=== PATIENT | female | born 1990 ===

== ENCOUNTER 2021-02-12 03:09 | Inpatient (IN) | payer BC ==
[2021-02-12] MEDS ORDERED: Carboprost Tromethamine 250 MCG/1 ML Amp IM PRN (07:45)
[2021-02-12] MEDS ORDERED: Sodium Chloride 0.9% 10 ML SDV IV PRN (07:45)
[2021-02-12] MEDS ORDERED: Sodium Chloride 0.9% 2.5 ML Syringe FLUSH PRN (07:45)
[2021-02-12] MEDS ORDERED: Misoprostol 200 MCG Tab PO PRN (07:45)
[2021-02-12] MEDS ORDERED: Sodium Chloride 0.9% 10 ML Syringe FLUSH PRN (07:45)
[2021-02-12] MEDS ORDERED: Oxytocin/0.9 % Sodium Chloride 30 UNIT/500 ML BAG IV SCH ×2 (07:45)
[2021-02-12] MEDS ORDERED: Misoprostol 25 MCG (1/4 of 100 MCG) Tab VAG PRN (07:45)
[2021-02-12] MEDS ORDERED: Ondansetron 4 MG/2 ML SDV IVPUSH PRN (07:45)
[2021-02-12] MEDS ORDERED: Methylergonovine 0.2 MG/1 ML Amp IM PRN (07:45)
[2021-02-12] MEDS ORDERED: Lidocaine 1% 50 ML MDV INJECT PRN (07:45)
[2021-02-12] MEDS ORDERED: Nalbuphine 10 MG/1 ML Vial IVPUSH PRN (07:45)
[2021-02-12] MEDS ORDERED: Tranexamic Acid 1,000 MG in Sodium Chloride 0.9% 100 ML IV PRN (07:45)
[2021-02-12] MEDS ORDERED: Water For Irrigation,Sterile 1,000 ML Container IRR PRN (07:45)
[2021-02-12] MEDS ORDERED: Ampicillin 2 GM in Sodium Chloride 0.9% 100 ML IV ONE (07:45)
[2021-02-12] MEDS ORDERED: Misoprostol 25 MCG (1/4 of 100 MCG) Tab PO SCH (07:45)
[2021-02-12] MEDS ORDERED: Terbutaline 1 MG/ML SDV SUBCUT PRN (07:45)
[2021-02-12] MEDS ORDERED: hydrOXYzine Pamoate 25 MG Cap PO PRN (08:00)
--- NOTE | 2021-02-12 08:39 | PCM.LDHP ---
L&D History of Present Illness - General Date of Service: 02/12/21 Admit Problem/Dx: Patient Status Order with Admit Dx/Problem 02/12/21 07:46 Patient Status [ADT] Routine Admission Diagnosis/Problem Admission Diagnosis/Problem 02/12/21 08:35 presenting to L&D with complaints of regular uterine contractions approximately 5 minutes apart. She is 41 2/7 weeks today (LUDWIG: 02/03/21 by LMP and early ultrasound). O+, rubella immune, GBS positive. SVE per nurse report 1cm/50%/-3, medium, midposition. 02/12/21 08:40 Source of Information: Patient History Limitations: Reports: No Limitations - Related Data Allergies/Adverse Reactions: Allergies Allergy/AdvReac Type Severity Reaction Status Date / Time No Known Allergies Allergy Verified 02/12/21 04:18 Home Medications: Home Meds Pnv No.95/Ferrous Fum/Folic AC [ Caplet] 1 each PO 02/12/21 [History] Past Medical History - Past Health History Medical/Surgical History: Denies Medical/Surgical History Social & Family History - Family History Family Medical History: No Pertinent Family History - Tobacco Use Tobacco Use Status *Q: Never Tobacco User Second Hand Smoke Exposure: No - Caffeine Use Caffeine Use: Reports: None - Recreational Drug Use Recreational Drug Use: No H&P Review of Systems - Review of Systems: Review Of Systems: See Below General: Reports: No Symptoms HEENT: Reports: No Symptoms Pulmonary: Reports: No Symptoms Cardiovascular: Reports: No Symptoms Gastrointestinal: Reports: No Symptoms Genitourinary: Reports: No Symptoms Musculoskeletal: Reports: No Symptoms Skin: Reports: No Symptoms Psychiatric: Reports: No Symptoms Neurological: Reports: No Symptoms Hematologic/Lymphatic: Reports: No Symptoms Immunologic: Reports: No Symptoms L&D Exam - Exam Exam: See Below - Vital Signs Weight: 134 lb - OB Specific Movement: Active Heart Tones: Present Heart Rate (FHR) Variability: Moderate (6-25 bmp) Presentation: Vertex - Dominguez Score Dominguez Score Cervix Position: Midposition Dominguez Score Consistency: Medium Dominguez Score Effacement: 31-50% Dominguez Score Dilation: 1-2 cm Dominguez Score Infant's Station: -3 Dominguez Score Total: 4 - Exam General: Alert, Oriented, Cooperative Lungs: Clear to Auscultation, Normal Respiratory Effort Cardiovascular: Regular Rate, Regular Rhythm GI/Abdominal Exam: Soft, Non-Tender Rectal Exam: Deferred Genitourinary: Deferred Back Exam: Normal Inspection, Full Range of Motion Extremities: Normal Inspection, Normal Range of Motion, Non-Tender, Normal Capillary Refill Skin: Warm, Dry Neurological: Normal Speech, Normal Tone, Sensation Intact Psychiatric: Alert, Normal Affect, Normal Mood - Patient Data Lab Results Last 24 hrs: Laboratory Results - last 24 hr 02/12/21 Range/Units 04:30 SARS-CoV-2 RNA (HARI) NEGATIVE (NEGATIVE) - Problem List (1) Supervision of normal IUP (intrauterine ) in primigravida SNOMED Code(s): 25567396, 562588410, 495725974, 588619943 ICD Code: Z34.00 - ENCNTR FOR SUPRVSN OF NORMAL FIRST , UNSP TRIMESTER Status: Acute Priority: High Current Visit: Yes Qualifiers: Trimester: third trimester Qualified Code(s): Z34.03 - Encounter for supervision of normal first , third trimester Problem List Initiated/Reviewed/Updated: Yes Orders Last 24hrs: Active Orders 24 hr Category Date Time Status Patient Status [ADT] Routine ADT 02/12/21 07:46 Active Bedrest Bathroom Privileges [RC] ASDIRECTED Care 02/12/21 07:46 Active Communication Order [RC] ASDIRECTED Care 02/12/21 07:46 Active Communication Order [RC] ASDIRECTED Care 02/12/21 07:46 Active Communication Order [RC] ASDIRECTED Care 02/12/21 07:46 Active Heart Tones [RC] CONTINUOUS Care 02/12/21 07:46 Active Non Stress Test [RC] PER UNIT ROUTINE Care 02/12/21 07:46 Active May Shower [RC] ASDIRECTED Care 02/12/21 07:46 Active Notify Provider [RC] PRN Care 02/12/21 07:46 Active Notify Provider [RC] PRN Care 02/12/21 07:46 Active Notify Provider [RC] PRN Care 02/12/21 07:46 Active Notify Provider [RC] STAT Care 02/12/21 07:46 Active Oxygen Therapy [RC] ASDIRECTED Care 02/12/21 07:46 Active Up ad Genesis [RC] ASDIRECTED Care 02/12/21 07:46 Active Vaginal Exam [RC] PRN Care 02/12/21 07:46 Active Vaginal Exam [RC] PRN Care 02/12/21 07:46 Active Vital Signs [RC] PER UNIT ROUTINE Care 02/12/21 07:46 Active Vital Signs [RC] PER UNIT ROUTINE Care 02/12/21 07:46 Active Regular Diet [DIET] Diet 02/12/21 Breakfast Active CBC W/O DIFF,HEMOGRAM [HEME] Routine Lab 02/12/21 07:46 Ordered RPR (SYPHILIS SERO) W/ RFLX [REF] Routine Lab 02/12/21 07:46 Ordered TYPE AND SCREEN [BBK] Routine Lab 02/12/21 07:46 Ordered Ampicillin 1 gm Med 02/12/21 12:00 Active Sodium Chloride 0.9% [Normal Saline] 50 ml IV Q4H Carboprost Tromethamine [Hemabate DS] Med 02/12/21 07:45 Active 250 mcg IM ASDIRECTED PRN Lactated Ringers [Ringers, Lactated] 1,000 ml Med 02/12/21 07:45 Active IV ASDIRECTED Lidocaine 1% [Xylocaine 1%] Med 02/12/21 07:45 Active 50 ml INJECT ONETIME PRN Methylergonovine [Methergine] Med 02/12/21 07:45 Active 0.2 mg IM ASDIRECTED PRN Nalbuphine [Nubain] Med 02/12/21 07:45 Active 10 mg IVPUSH Q1H PRN Ondansetron [Zofran] Med 02/12/21 07:45 Active 4 mg IVPUSH Q6H PRN Oxytocin/0.9 % Sodium Chloride [Oxytocin 30 Unit/500 ML Med 02/12/21 07:45 Active -NS] 30 unit in 500 ml IV TITRATE Oxytocin/0.9 % Sodium Chloride [Oxytocin 30 Unit/500 ML Med 02/12/21 07:45 Active -NS] 30 unit in 500 ml IV TITRATE Sodium Chloride 0.9% [Normal Saline] Med 02/12/21 07:45 Active 10 ml IV ASDIRECTED PRN Sodium Chloride 0.9% [Saline Flush] Med 02/12/21 07:45 Active 10 ml FLUSH ASDIRECTED PRN Sodium Chloride 0.9% [Saline Flush] Med 02/12/21 07:45 Active 2.5 ml FLUSH ASDIRECTED PRN Terbutaline [Brethine] Med 02/12/21 07:45 Active 0.25 mg SUBCUT ASDIRECTED PRN Tranexamic Acid [Cyklokapron] 1,000 mg Med 02/12/21 07:45 Active Sodium Chloride 0.9% [Normal Saline] 100 ml IV ONETIME Water For Irrigation,Sterile [Sterile Water for Med 02/12/21 07:45 Active Irrigation] 1,000 ml IRR ASDIRECTED PRN hydrOXYzine pamoate [Vistaril] Med 02/12/21 08:00 Active 50 mg PO BEDTIME PRN miSOPROStoL [Cytotec] Med 02/12/21 07:45 Active 200 mcg PO ONETIME PRN miSOPROStoL [Cytotec] Med 02/12/21 07:45 Active 25 mcg PO Q4H miSOPROStoL [Cytotec] Med 02/12/21 07:45 Active 25 mcg VAG Q4H PRN Scalp Electrode [WOMSER] Per Unit Routine Oth 02/12/21 07:46 Ordered Medication Administration Instruction [OM.PC] Q3H Oth 02/12/21 08:00 Ordered Peripheral IV Insertion Adult [OM.PC] Routine Oth 02/12/21 07:46 Ordered Resuscitation Status Routine Resus Stat 02/12/21 07:45 Ordered Medication Orders Carboprost Tromethamine (Carboprost Tromethamine 250 Mcg/1 Ml Amp) 250 mcg IM ASDIRECTED PRN PRN Reason: Post Hemorrhage Hydroxyzine Pamoate (Hydroxyzine Pamoate 25 Mg Cap) 50 mg PO BEDTIME PRN PRN Reason: Insomnia Oxytocin/Sodium Chloride (Oxytocin 30 Unit/500 Ml-Ns) 30 unit in 500 mls @ 999 mls/hr IV TITRATE BRIDGET Tranexamic Acid 1,000 mg/ (Sodium Chloride) 110 mls @ 660 mls/hr IV ONETIME PRN PRN Reason: Bleeding Oxytocin/Sodium Chloride (Oxytocin 30 Unit/500 Ml-Ns) 30 unit in 500 mls @ 2 mls/hr IV TITRATE BRIDGET; Protocol Ampicillin Sodium 1 gm/ Sodium (Chloride) 50 mls @ 100 mls/hr IV Q4H BRIDGET Lactated Ringer's (Ringers, Lactated) 1,000 mls @ 150 mls/hr IV ASDIRECTED BRIDGET Lidocaine HCl (Lidocaine 1% 50 Ml Mdv) 50 ml INJECT ONETIME PRN PRN Reason: Laceration repair Methylergonovine Maleate (Methylergonovine 0.2 Mg/1 Ml Amp) 0.2 mg IM ASDIRECTED PRN PRN Reason: Post Hemorrhage Misoprostol (Misoprostol 200 Mcg Tab) 200 mcg PO ONETIME PRN PRN Reason: Post Hemorrhage Misoprostol (Misoprostol 25 Mcg (1/4 Of 100 Mcg) Tab) 25 mcg VAG Q4H PRN PRN Reason: Cervical Ripening Misoprostol (Misoprostol 25 Mcg (1/4 Of 100 Mcg) Tab) 25 mcg PO Q4H BRIDGET Nalbuphine HCl (Nalbuphine 10 Mg/1 Ml Vial) 10 mg IVPUSH Q1H PRN PRN Reason: Pain (severe 7-10) Ondansetron HCl (Ondansetron 4 Mg/2 Ml Sdv) 4 mg IVPUSH Q6H PRN PRN Reason: Nausea/Vomiting Sodium Chloride (Sodium Chloride 0.9% 10 Ml Syringe) 10 ml FLUSH ASDIRECTED PRN PRN Reason: Keep Vein Open Sodium Chloride (Sodium Chloride 0.9% 2.5 Ml Syringe) 2.5 ml FLUSH ASDIRECTED PRN PRN Reason: Keep Vein Open Sodium Chloride (Sodium Chloride 0.9% 10 Ml Sdv) 10 ml IV ASDIRECTED PRN PRN Reason: IV Use Sterile Water (Water For Irrigation,Sterile 1,000 Ml Container) 1,000 ml IRR ASDIRECTED PRN PRN Reason: delivery Terbutaline Sulfate (Terbutaline 1 Mg/Ml Sdv) 0.25 mg SUBCUT ASDIRECTED PRN PRN Reason: Tacysystole Assessment/Plan Comment:: Admit A: presenting to L&D with complaints of regular uterine contractions approximately 5 minutes apart. She is 41 2/7 weeks today (LUDWIG: 02/03/21 by LMP and early ultrasound). O+, rubella immune, GBS positive. SVE per nurse report 1cm/50%/-3, medium, midposition. P: Anticipate ; cytotec to pitocin PRN; epidural PRN; Dr. Ag updated.
[2021-02-12] MEDS: Lactated Ringers 1,000 ML IV SCH ×3 (08:46→16:59)
[2021-02-12] MEDS: Ampicillin 1 GM in Sodium Chloride 0.9% 50 ML IV SCH ×2 (13:13→17:14)
[2021-02-12] MEDS ORDERED: Ropivacaine HCl/PF 200 ML ONE (13:13)
[2021-02-12] MEDS ORDERED: Bupivacaine 0.25% 10 ML SDV ONE (13:13)
--- NOTE | 2021-02-12 13:44 | PCM.PREANE ---
Preanesthetic Assessment - Anesthesia/Transfusion/Family Hx Anesthesia History: No Prior Anesthesia Family History of Anesthesia Reaction: No Transfusion History: No Prior Transfusion(s) - Physical Assessment NPO Status Date: 02/12/21 NPO Status Time: 06:00 Height: 5 ft 5 in Weight: 134 lb ASA Class: 2 Airway Class: Mallampati = 2 - Lab Values: Laboratory Last Values WBC 10.92 K/uL (4.0-11.0) 02/12/21 08:20 RBC 4.43 M/uL (4.30-5.90) 02/12/21 08:20 Hgb 13.0 g/dL (12.0-16.0) 02/12/21 08:20 Hct 39.3 % (36.0-46.0) 02/12/21 08:20 MCV 88.7 fL (80.0-98.0) 02/12/21 08:20 MCH 29.3 pg (27.0-32.0) 02/12/21 08:20 MCHC 33.1 g/dL (31.0-37.0) 02/12/21 08:20 RDW Std Deviation 47.6 fl (28.0-62.0) 02/12/21 08:20 RDW Coeff of Gorge 15 % (11.0-15.0) 02/12/21 08:20 Plt Count 282 K/uL (150-400) 02/12/21 08:20 MPV 11.00 fL (7.40-12.00) 02/12/21 08:20 Nucleated RBC % 0.0 /100WBC 02/12/21 08:20 Nucleated RBCs # 0 K/uL 02/12/21 08:20 SARS-CoV-2 RNA (HARI) NEGATIVE (NEGATIVE) 02/12/21 04:30 Blood Type O POSITIVE 02/12/21 08:20 Antibody Screen NEGATIVE 02/12/21 08:20 - Allergies Allergies/Adverse Reactions: Allergies Allergy/AdvReac Type Severity Reaction Status Date / Time No Known Allergies Allergy Verified 02/12/21 04:18 - Blood Blood Available: Yes Product(s) Available: PRBC - Anesthesia Plan Pre-Op Medication Ordered: None - Acknowledgements Anesthesia Type Planned: Epidural Pt an Appropriate Candidate for the Planned Anesthesia: Yes Alternatives and Risks of Anesthesia Discussed w Pt/Guardian: Yes Pt/Guardian Understands and Agrees with Anesthesia Plan: Yes PreAnesthesia Questionnaire - Past Health History Medical/Surgical History: Denies Medical/Surgical History - SUBSTANCE USE Tobacco Use Status *Q: Never Tobacco User Tobacco Use Within Last Twelve Months: No Second Hand Smoke Exposure: No Recreational Drug Use History: No - HOME MEDS Home Medications: Home Meds Pnv No.95/Ferrous Fum/Folic AC [ Caplet] 1 each PO 02/12/21 [History] - CURRENT (IN HOUSE) MEDS Current Meds: Current Medications Carboprost Tromethamine (Carboprost Tromethamine 250 Mcg/1 Ml Amp) 250 mcg IM ASDIRECTED PRN PRN Reason: Post Hemorrhage Hydroxyzine Pamoate (Hydroxyzine Pamoate 25 Mg Cap) 50 mg PO BEDTIME PRN PRN Reason: Insomnia Oxytocin/Sodium Chloride (Oxytocin 30 Unit/500 Ml-Ns) 30 unit in 500 mls @ 999 mls/hr IV TITRATE BRIDGET Tranexamic Acid 1,000 mg/ (Sodium Chloride) 110 mls @ 660 mls/hr IV ONETIME PRN PRN Reason: Bleeding Oxytocin/Sodium Chloride (Oxytocin 30 Unit/500 Ml-Ns) 30 unit in 500 mls @ 2 mls/hr IV TITRATE BRIDGET; Protocol Ampicillin Sodium 1 gm/ Sodium (Chloride) 50 mls @ 100 mls/hr IV Q4H BRIDGET Last Admin: 02/12/21 13:13 Dose: 100 mls/hr Documented by: Lactated Ringer's (Ringers, Lactated) 1,000 mls @ 150 mls/hr IV ASDIRECTED BRIDGET Last Admin: 02/12/21 13:12 Dose: 150 mls/hr Documented by: Lidocaine HCl (Lidocaine 1% 50 Ml Mdv) 50 ml INJECT ONETIME PRN PRN Reason: Laceration repair Methylergonovine Maleate (Methylergonovine 0.2 Mg/1 Ml Amp) 0.2 mg IM ASDIRECTED PRN PRN Reason: Post Hemorrhage Misoprostol (Misoprostol 200 Mcg Tab) 200 mcg PO ONETIME PRN PRN Reason: Post Hemorrhage Misoprostol (Misoprostol 25 Mcg (1/4 Of 100 Mcg) Tab) 25 mcg VAG Q4H PRN PRN Reason: Cervical Ripening Last Admin: 02/12/21 08:46 Dose: 25 mcg Documented by: Misoprostol (Misoprostol 25 Mcg (1/4 Of 100 Mcg) Tab) 25 mcg PO Q4H BRIDGET Last Admin: 02/12/21 08:46 Dose: 25 mcg Documented by: Nalbuphine HCl (Nalbuphine 10 Mg/1 Ml Vial) 10 mg IVPUSH Q1H PRN PRN Reason: Pain (severe 7-10) Ondansetron HCl (Ondansetron 4 Mg/2 Ml Sdv) 4 mg IVPUSH Q6H PRN PRN Reason: Nausea/Vomiting Sodium Chloride (Sodium Chloride 0.9% 10 Ml Syringe) 10 ml FLUSH ASDIRECTED PRN PRN Reason: Keep Vein Open Sodium Chloride (Sodium Chloride 0.9% 2.5 Ml Syringe) 2.5 ml FLUSH ASDIRECTED PRN PRN Reason: Keep Vein Open Sodium Chloride (Sodium Chloride 0.9% 10 Ml Sdv) 10 ml IV ASDIRECTED PRN PRN Reason: IV Use Sterile Water (Water For Irrigation,Sterile 1,000 Ml Container) 1,000 ml IRR ASDIRECTED PRN PRN Reason: delivery Terbutaline Sulfate (Terbutaline 1 Mg/Ml Sdv) 0.25 mg SUBCUT ASDIRECTED PRN PRN Reason: Tacysystole Discontinued Medications Bupivacaine HCl (Bupivacaine 0.25% 10 Ml Sdv) Confirm Administered Dose 10 ml .ROUTE .STK-MED ONE Stop: 02/12/21 13:14 Ampicillin Sodium 2 gm/ Sodium (Chloride) 100 mls @ 200 mls/hr IV ONETIME ONE Stop: 02/12/21 08:14 Last Admin: 02/12/21 08:46 Dose: 200 mls/hr Documented by: Ropivacaine (Naropin 0.2%) Confirm Administered Dose 200 mls @ as directed .ROUTE .STK-MED ONE Stop: 02/12/21 13:14 - Pre-Procedure Checklist Attending Provider Aware: Yes Chart Reviewed: Yes Consent Signed: Yes Labs Reviewed: Yes VS/FHR Reviewed: Yes Patient Identification Confirmation Method: Reports: Verbal Patient Pt an Appropriate Candidate for the Planned Anesthesia: Yes Alternatives and Risks of Anesthesia Discussed w Pt/Guardian: Yes - Procedure Procedure Start Date: 02/12/21 Procedure Start Time: 13:[address]: Reports: Blood Pressure, Heart Rate, SPO2 Functional IV: Yes Safety Measures: Reports: Patient Identified, Procedure Verified, Site Verified, Procedure Time Out Patient Position: Reports: Sitting Prep: Reports: Betadine x3 Local Anesthetic: Reports: Intradermal Wheal w Lidocaine 1% Regional Placement Level: Reports: L3-4 Needle: Reports: 17 g Touhy Approach: Reports: Midline Technique: Reports: LUZ Plastic Syringe Parasthesia: Reports: None Fluid Obtained: Reports: None Test Dose Time: 13:22 Test Dose Medication: Reports: Lidocaine 1.5% w Epinephrine 1:200,000 Test Dose Response: Reports: Negative Loading Dose Time: 13:21 Loading Dose Medication: bupivicaine 0.25% 10cc Loading Dose Patient Position: sitting Continuous Infusion Start Time: 13:25 Continuous Infusion Medication: ropivicaine 0.2% Continuous Infusion Rate: 16 Continuous Infusion PCS Bolus Option: 4 Continuous Infusion Lockout Dose (cc/hr): 32 Patient Position Post Placement: Reports: Supline/LAWSON Level Achieved: adequate VS and FHR Monitored in Unit Post Placement: Yes Procedure End Date: 02/12/21 Procedure End Time: 14:15
[2021-02-12] MEDS ORDERED: Bisacodyl 10 MG Supp RECTAL PRN (18:22)
[2021-02-12] MEDS ORDERED: Acetaminophen 500 MG Tab PO PRN ×2 (18:22)
[2021-02-12] MEDS ORDERED: Benzocaine/Menthol 20%-0.5% Spray 78 GM Cannister TOP PRN (18:22)
[2021-02-12] MEDS ORDERED: Docusate Sodium 100 MG Cap PO PRN (18:22)
[2021-02-12] MEDS ORDERED: Witch Hazel Medicated Pads 40/Jar TOP PRN (18:22)
[2021-02-12] MEDS ORDERED: Lanolin 100% Cream 7 GM Tube TOP PRN (18:22)
[2021-02-12] MEDS ORDERED: Ibuprofen 400 MG Tab PO PRN (18:22)
[2021-02-12] MEDS ORDERED: oxyCODONE 5 MG Tab PO PRN (18:22)
[2021-02-12] MEDS: Ibuprofen 800 MG Tab PO PRN (23:05)
--- NOTE | 2021-02-13 07:52 | PCM.DCSUM1 ---
Discharge Summary - Hospital Course Free Text/Narrative:: Discharge home with baby. Follow up in the clinic in 6 weeks for routine visit; sooner, if needed. Diagnosis: Stroke: No Modified Donavan Scale: No Symptoms at All Modified Donavan Scale Score: 0 - Discharge Data Discharge Date: 02/13/21 Discharge Disposition: Home, Self-Care 01 Condition: Good - Referral to Home Health Primary Care Physician: PCP None - Discharge Diagnosis/Problem(s) (1) Supervision of normal IUP (intrauterine ) in primigravida SNOMED Code(s): 39956334, 410239076, 291827125, 713864269 ICD Code: Z34.00 - ENCNTR FOR SUPRVSN OF NORMAL FIRST , UNSP TRIMESTER Status: Acute Priority: High Current Visit: Yes Qualifiers: Trimester: third trimester Qualified Code(s): Z34.03 - Encounter for supervision of normal first , third trimester - Patient Instructions Diet: Regular Diet as Tolerated, Drink 8-10+ Glasses/Day Activity: As Tolerated, No Strenuous Activities, Rest and Relax Today Driving: May Drive Today Showering/Bathing: May Shower Notify Provider of: Fever, Increased Pain, Swelling and Redness, Drainage, Nausea and/or Vomiting - Discharge Plan *PRESCRIPTION DRUG MONITORING PROGRAM REVIEWED*: Not Applicable *COPY OF PRESCRIPTION DRUG MONITORING REPORT IN PATIENT JASWANT: Not Applicable Prescriptions/Med Rec: Lanolin [Lansinoh HPA] 1 tube TOP ASDIRECTED PRN #1 tube PRN Reason: Sore Nipples Ibuprofen [Motrin] 800 mg PO Q6H PRN #90 tablet PRN Reason: Pain (Mild 1-3) Home Medications: Home Meds Pnv No.95/Ferrous Fum/Folic AC [ Caplet] 1 each PO 02/12/21 [History] Ibuprofen [Motrin] 800 mg PO Q6H PRN #90 tablet 02/13/21 [Rx] Lanolin [Lansinoh HPA] 1 tube TOP ASDIRECTED PRN #1 tube 02/13/21 [Rx] Oxygen Therapy Mode: Room Air - Discharge Summary/Plan Comment DC Time >30 min.: Yes - General Info Date of Service: 02/13/21 Admission Dx/Problem (Free Text: Patient Status Order with Admit Dx/Problem 02/12/21 07:46 Patient Status [ADT] Routine Admission Diagnosis/Problem Admission Diagnosis/Problem 02/12/21 08:35 presenting to L&D with complaints of regular uterine contractions approximately 5 minutes apart. She is 41 2/7 weeks today (LUDWIG: 02/03/21 by LMP and early ultrasound). O+, rubella immune, GBS positive. SVE per nurse report 1cm/50%/-3, medium, midposition. 02/12/21 08:40 Functional Status: Reports: Pain Controlled, Tolerating Diet, Ambulating, Urinating - Review of Systems General: Reports: No Symptoms HEENT: Reports: No Symptoms Pulmonary: Reports: No Symptoms Cardiovascular: Reports: No Symptoms Gastrointestinal: Reports: No Symptoms Genitourinary: Reports: No Symptoms Musculoskeletal: Reports: No Symptoms Skin: Reports: No Symptoms Neurological: Reports: No Symptoms Psychiatric: Reports: No Symptoms - Patient Data Vitals - Most Recent: Last Vital Signs Temp 97.5 F 02/12/21 22:21 Pulse 77 02/12/21 22:21 Resp 16 02/12/21 22:21 BP 108/71 02/12/21 22:21 Pulse Ox 98 02/12/21 22:21 Weight - Most Recent: 134 lb Lab Results - Last 24 hrs: Laboratory Results - last 24 hr 02/12/21 02/12/21 02/13/21 Range/Units 08:20 08:20 06:00 WBC 10.92 (4.0-11.0) K/uL RBC 4.43 (4.30-5.90) M/uL Hgb 13.0 11.9 L (12.0-16.0) g/dL Hct 39.3 35.8 L (36.0-46.0) % MCV 88.7 (80.0-98.0) fL MCH 29.3 (27.0-32.0) pg MCHC 33.1 (31.0-37.0) g/dL RDW Std Deviation 47.6 (28.0-62.0) fl RDW Coeff of Gorge 15 (11.0-15.0) % Plt Count 282 (150-400) K/uL MPV 11.00 (7.40-12.00) fL Nucleated RBC % 0.0 /100WBC Nucleated RBCs # 0 K/uL Blood Type O POSITIVE Antibody Screen NEGATIVE Med Orders - Current: Current Medications Acetaminophen (Acetaminophen 500 Mg Tab) 500 mg PO Q4H PRN PRN Reason: Pain (mild 1-3) Acetaminophen (Acetaminophen 500 Mg Tab) 1,000 mg PO Q4H PRN PRN Reason: Pain (mild 1-3) Last Admin: 02/13/21 06:04 Dose: 1,000 mg Documented by: Benzocaine/Menthol (Benzocaine/Menthol 20%-0.5% [place] 78 Gm Cannister) 0 gm TOP ASDIRECTED PRN PRN Reason: Perineal Comfort Measure Last Admin: 02/12/21 23:55 Dose: 1 canister Documented by: Bisacodyl (Bisacodyl 10 Mg Supp) 10 mg RECTAL ONETIME PRN PRN Reason: Constipation Docusate Sodium (Docusate Sodium 100 Mg Cap) 100 mg PO Q12H PRN PRN Reason: Constipation Emollient Ointment (Lanolin 100% Cream 7 Gm Tube) 0 gm TOP ASDIRECTED PRN PRN Reason: Sore Nipples Last Admin: 02/12/21 23:12 Dose: 1 tube Documented by: Ibuprofen (Ibuprofen 400 Mg Tab) 400 mg PO Q4H PRN PRN Reason: Pain (mild 1-3) Ibuprofen (Ibuprofen 800 Mg Tab) 800 mg PO Q6H PRN PRN Reason: Pain (mild 1-3) Last Admin: 02/12/21 23:05 Dose: 800 mg Documented by: Oxycodone HCl (Oxycodone 5 Mg Tab) 5 mg PO Q2H PRN PRN Reason: Pain (severe 7-10) Witch Sandie (Witch Sandie Medicated Pads 40/Jar) 1 pad TOP ASDIRECTED PRN PRN Reason: comfort care Last Admin: 02/12/21 23:55 Dose: 1 tub Documented by: Discontinued Medications Bupivacaine HCl (Bupivacaine 0.25% 10 Ml Sdv) Confirm Administered Dose 10 ml .ROUTE .STK-MED ONE Stop: 02/12/21 13:14 Carboprost Tromethamine (Carboprost Tromethamine 250 Mcg/1 Ml Amp) 250 mcg IM ASDIRECTED PRN PRN Reason: Post Hemorrhage Hydroxyzine Pamoate (Hydroxyzine Pamoate 25 Mg Cap) 50 mg PO BEDTIME PRN PRN Reason: Insomnia Oxytocin/Sodium Chloride (Oxytocin 30 Unit/500 Ml-Ns) 30 unit in 500 mls @ 999 mls/hr IV TITRATE BRIDGET Tranexamic Acid 1,000 mg/ (Sodium Chloride) 110 mls @ 660 mls/hr IV ONETIME PRN PRN Reason: Bleeding Oxytocin/Sodium Chloride (Oxytocin 30 Unit/500 Ml-Ns) 30 unit in 500 mls @ 2 mls/hr IV TITRATE [facility]; Protocol Last Titration: 02/12/21 14:45 Dose: 0 munits/min, 0 mls/hr Documented by: Ampicillin Sodium 2 gm/ Sodium (Chloride) 100 mls @ 200 mls/hr IV ONETIME ONE Stop: 02/12/21 08:14 Last Admin: 02/12/21 08:46 Dose: 200 mls/hr Documented by: Ampicillin Sodium 1 gm/ Sodium (Chloride) 50 mls @ 100 mls/hr IV Q4H [facility] Last Admin: 02/12/21 17:14 Dose: 100 mls/hr Documented by: Lactated Ringer's (Ringers, Lactated) 1,000 mls @ 150 mls/hr IV ASDIRECTED [facility] Last Admin: 02/12/21 16:59 Dose: 150 mls/hr Documented by: Ropivacaine (Naropin 0.2%) Confirm Administered Dose 200 mls @ as directed .ROUTE .STK-MED ONE Stop: 02/12/21 13:14 Lidocaine HCl (Lidocaine 1% 50 Ml Mdv) 50 ml INJECT ONETIME PRN PRN Reason: Laceration repair Methylergonovine Maleate (Methylergonovine 0.2 Mg/1 Ml Amp) 0.2 mg IM ASDIRECTED PRN PRN Reason: Post Hemorrhage Misoprostol (Misoprostol 200 Mcg Tab) 200 mcg PO ONETIME PRN PRN Reason: Post Hemorrhage Misoprostol (Misoprostol 25 Mcg (1/4 Of 100 Mcg) Tab) 25 mcg VAG Q4H PRN PRN Reason: Cervical Ripening Last Admin: 02/12/21 08:46 Dose: 25 mcg Documented by: Misoprostol (Misoprostol 25 Mcg (1/4 Of 100 Mcg) Tab) 25 mcg PO Q4H BRIDGET Last Admin: 02/12/21 08:46 Dose: 25 mcg Documented by: Nalbuphine HCl (Nalbuphine 10 Mg/1 Ml Vial) 10 mg IVPUSH Q1H PRN PRN Reason: Pain (severe 7-10) Ondansetron HCl (Ondansetron 4 Mg/2 Ml Sdv) 4 mg IVPUSH Q6H PRN PRN Reason: Nausea/Vomiting Sodium Chloride (Sodium Chloride 0.9% 10 Ml Syringe) 10 ml FLUSH ASDIRECTED PRN PRN Reason: Keep Vein Open Sodium Chloride (Sodium Chloride 0.9% 2.5 Ml Syringe) 2.5 ml FLUSH ASDIRECTED PRN PRN Reason: Keep Vein Open Sodium Chloride (Sodium Chloride 0.9% 10 Ml Sdv) 10 ml IV ASDIRECTED PRN PRN Reason: IV Use Sterile Water (Water For Irrigation,Sterile 1,000 Ml Container) 1,000 ml IRR ASDIRECTED PRN PRN Reason: delivery Terbutaline Sulfate (Terbutaline 1 Mg/Ml Sdv) 0.25 mg SUBCUT ASDIRECTED PRN PRN Reason: Tacysystole - Exam General: Reports: Alert, Oriented, Cooperative, No Acute Distress Lungs: Reports: Normal Respiratory Effort Cardiovascular: Reports: Regular Rate, Regular Rhythm GI/Abdominal Exam: Soft, Non-Tender (Female) Exam: Deferred Rectal (Female) Exam: Deferred Back Exam: Reports: Normal Inspection, Full Range of Motion Extremities: Normal Inspection, Normal Range of Motion, Non-Tender, Normal Capillary Refill Skin: Reports: Warm, Dry, Intact Neurological: Reports: No New Focal Deficit, Normal Speech, Normal Tone, Sensation Intact Psy/Mental Status: Reports: Alert, Normal Affect, Normal Mood
--- NOTE | 2021-02-13 10:33 | PCM.POSTAN ---
POST ANESTHESIA ASSESSMENT - MENTAL STATUS Mental Status: Alert, Oriented - VITAL SIGNS Vital Signs: Last Vital Signs Temp 97.0 F 02/13/21 08:00 Pulse 68 02/13/21 08:00 Resp 18 02/13/21 08:00 BP 105/64 02/13/21 08:00 Pulse Ox 96 02/13/21 08:00 - RESPIRATORY Respiratory Status: Respiratory Rate WNL, Airway Patent, O2 Saturation Stable - CARDIOVASCULAR CV Status: Pulse Rate WNL, Blood Pressure Stable - GASTROINTESTINAL GI Status: No Symptoms - POST OP HYDRATION Hydration Status: Adequate & Stable
--- NOTE | 2021-02-13 10:33 | PCM48HPAN ---
Post Anesthesia Note - EVALUATION WITHIN 48HRS OF ANESTHETIC Vital Signs in Normal Range: Yes Patient Participated in Evaluation: Yes Respiratory Function Stable: Yes Airway Patent: Yes Cardiovascular Function Stable: Yes Hydration Status Stable: Yes Pain Control Satisfactory: Yes Nausea and Vomiting Control Satisfactory: Yes Mental Status Recovered: Yes Vital Signs: Last Vital Signs Temp 97.0 F 02/13/21 08:00 Pulse 68 02/13/21 08:00 Resp 18 02/13/21 08:00 BP 105/64 02/13/21 08:00 Pulse Ox 96 02/13/21 08:00
[2021-02-13] MEDS: Ibuprofen 800 MG Tab PO PRN (10:49)
--- NOTE | 2021-02-13 12:00 | OR ---
SURGEON: Gagan Ag MD DATE OF PROCEDURE: 02/13/2021 DELIVERY NOTE: This patient is 30-year-old. She is a primigravida. She is followed in our clinic primarily by our nurse midwifery service. She is admitted for social induction with Cytotec and Pitocin. She responded to both of them, and then she went from 1 cm to 4 cm. At that time, she had a spontaneous rupture of the membrane and meconium-tinged fluid is noted. The patient had epidural anesthesia for labor analgesia. She started having some variable deceleration, so Pitocin discontinued; however, the patient continued to contract and progress on her own. She went to 7 and then complete, and she commenced pushing. She pushed for about an hour, and then she started having deep variable deceleration with each pushing, and she had dense epidural and was unable to accomplish spontaneous vaginal delivery. I was consulted for possible vacuum extraction. At the time, I arrived to assess the patient, her vital signs were essentially normal. heart rate was category 1. Pelvic examination revealed that the patient was vertex in an OA position and it is right at the perineum, and so in my assessment this was amenable to vacuum extraction. I consulted with the parent and explained to them the procedure and the process and obtaining consent, and then Kiwi vacuum extraction was placed with the patient pushing, and with gentle pulling of patient, I was able to achieve vaginal delivery for the patient. Male fetus. [employer] and respiratory therapist were in attendance of the delivery. However, the fetus cried immediately at the time of the delivery. It just required only 1 pull with the vacuum with patient's extensive and strong pushing. There was no perineal, labial, or vaginal laceration. The placenta delivered spontaneous, complete without any problem. Estimated blood loss was 350 to 400 mL. There was no complication in the labor and delivery process of this patient. SOM / AMIE /[id number]
[2021-02-14] MEDS: Ibuprofen 800 MG Tab PO PRN (09:25)
--- NOTE | 2021-02-14 12:25 | PCM.DCSUM1 ---
Discharge Summary - Hospital Course Diagnosis: Stroke: No Modified Throckmorton Scale: No Symptoms at All Modified Throckmorton Scale Score: 0 - Discharge Data Discharge Date: 02/14/21 Discharge Disposition: Home, Self-Care 01 Condition: Good - Referral to Home Health Primary Care Physician: PCP None - Patient Instructions Diet: Regular Diet as Tolerated, Drink 8-10+ Glasses/Day Activity: As Tolerated, No Strenuous Activities, Rest and Relax Today Driving: May Drive Today Showering/Bathing: May Shower Notify Provider of: Fever, Increased Pain, Swelling and Redness, Drainage, Nausea and/or Vomiting - Discharge Plan *PRESCRIPTION DRUG MONITORING PROGRAM REVIEWED*: Not Applicable *COPY OF PRESCRIPTION DRUG MONITORING REPORT IN PATIENT JASWANT: Not Applicable Prescriptions/Med Rec: Lanolin [Lansinoh HPA] 1 tube TOP ASDIRECTED PRN #1 tube PRN Reason: Sore Nipples Ibuprofen [Motrin] 800 mg PO Q6H PRN #90 tablet PRN Reason: Pain (Mild 1-3) Home Medications: Home Meds Pnv No.95/Ferrous Fum/Folic AC [ Caplet] 1 each PO 02/12/21 [History] Ibuprofen [Motrin] 800 mg PO Q6H PRN #90 tablet 02/13/21 [Rx] Lanolin [Lansinoh HPA] 1 tube TOP ASDIRECTED PRN #1 tube 02/13/21 [Rx] Oxygen Therapy Mode: Room Air Patient Handouts: Baby Blues, Care After Vaginal Delivery - Discharge Summary/Plan Comment DC Time >30 min.: Yes - General Info Date of Service: 02/14/21 Functional Status: Reports: Pain Controlled - Review of Systems General: Reports: No Symptoms HEENT: Reports: No Symptoms Pulmonary: Reports: No Symptoms Cardiovascular: Reports: No Symptoms Gastrointestinal: Reports: No Symptoms Genitourinary: Reports: No Symptoms Musculoskeletal: Reports: No Symptoms Skin: Reports: No Symptoms Neurological: Reports: No Symptoms Psychiatric: Reports: No Symptoms - Patient Data Vitals - Most Recent: Last Vital Signs Temp 36.3 C 02/13/21 21:55 Pulse 63 02/14/21 08:00 Resp 15 02/13/21 21:55 BP 99/69 02/14/21 08:00 Pulse Ox 96 02/14/21 08:00 Weight - Most Recent: 60.781 kg Med Orders - Current: Current Medications Acetaminophen (Acetaminophen 500 Mg Tab) 500 mg PO Q4H PRN PRN Reason: Pain (mild 1-3) Acetaminophen (Acetaminophen 500 Mg Tab) 1,000 mg PO Q4H PRN PRN Reason: Pain (mild 1-3) Last Admin: 02/13/21 06:04 Dose: 1,000 mg Documented by: Benzocaine/Menthol (Benzocaine/Menthol 20%-0.5% [place] 78 Gm Cannister) 0 gm TOP ASDIRECTED PRN PRN Reason: Perineal Comfort Measure Last Admin: 02/12/21 23:55 Dose: 1 canister Documented by: Bisacodyl (Bisacodyl 10 Mg Supp) 10 mg RECTAL ONETIME PRN PRN Reason: Constipation Docusate Sodium (Docusate Sodium 100 Mg Cap) 100 mg PO Q12H PRN PRN Reason: Constipation Emollient Ointment (Lanolin 100% Cream 7 Gm Tube) 0 gm TOP ASDIRECTED PRN PRN Reason: Sore Nipples Last Admin: 02/12/21 23:12 Dose: 1 tube Documented by: Ibuprofen (Ibuprofen 400 Mg Tab) 400 mg PO Q4H PRN PRN Reason: Pain (mild 1-3) Ibuprofen (Ibuprofen 800 Mg Tab) 800 mg PO Q6H PRN PRN Reason: Pain (mild 1-3) Last Admin: 02/14/21 09:25 Dose: 800 mg Documented by: Oxycodone HCl (Oxycodone 5 Mg Tab) 5 mg PO Q2H PRN PRN Reason: Pain (severe 7-10) Witch Sandie (Witch Sandie Medicated Pads 40/Jar) 1 pad TOP ASDIRECTED PRN PRN Reason: comfort care Last Admin: 02/12/21 23:55 Dose: 1 tub Documented by: Discontinued Medications Bupivacaine HCl (Bupivacaine 0.25% 10 Ml Sdv) Confirm Administered Dose 10 ml .ROUTE .STK-MED ONE Stop: 02/12/21 13:14 Carboprost Tromethamine (Carboprost Tromethamine 250 Mcg/1 Ml Amp) 250 mcg IM ASDIRECTED PRN PRN Reason: Post Hemorrhage Hydroxyzine Pamoate (Hydroxyzine Pamoate 25 Mg Cap) 50 mg PO BEDTIME PRN PRN Reason: Insomnia Oxytocin/Sodium Chloride (Oxytocin 30 Unit/500 Ml-Ns) 30 unit in 500 mls @ 999 mls/hr IV TITRATE [facility] Tranexamic Acid 1,000 mg/ (Sodium Chloride) 110 mls @ 660 mls/hr IV ONETIME PRN PRN Reason: Bleeding Oxytocin/Sodium Chloride (Oxytocin 30 Unit/500 Ml-Ns) 30 unit in 500 mls @ 2 mls/hr IV TITRATE [facility]; Protocol Last Titration: 02/12/21 14:45 Dose: 0 munits/min, 0 mls/hr Documented by: Ampicillin Sodium 2 gm/ Sodium (Chloride) 100 mls @ 200 mls/hr IV ONETIME ONE Stop: 02/12/21 08:14 Last Admin: 02/12/21 08:46 Dose: 200 mls/hr Documented by: Ampicillin Sodium 1 gm/ Sodium (Chloride) 50 mls @ 100 mls/hr IV Q4H [facility] Last Admin: 02/12/21 17:14 Dose: 100 mls/hr Documented by: Lactated Ringer's (Ringers, Lactated) 1,000 mls @ 150 mls/hr IV ASDIRECTED [facility] Last Admin: 02/12/21 16:59 Dose: 150 mls/hr Documented by: Ropivacaine (Naropin 0.2%) Confirm Administered Dose 200 mls @ as directed .ROUTE .STK-MED ONE Stop: 02/12/21 13:14 Lidocaine HCl (Lidocaine 1% 50 Ml Mdv) 50 ml INJECT ONETIME PRN PRN Reason: Laceration repair Methylergonovine Maleate (Methylergonovine 0.2 Mg/1 Ml Amp) 0.2 mg IM ASDIRECTED PRN PRN Reason: Post Hemorrhage Misoprostol (Misoprostol 200 Mcg Tab) 200 mcg PO ONETIME PRN PRN Reason: Post Hemorrhage Misoprostol (Misoprostol 25 Mcg (1/4 Of 100 Mcg) Tab) 25 mcg VAG Q4H PRN PRN Reason: Cervical Ripening Last Admin: 02/12/21 08:46 Dose: 25 mcg Documented by: Misoprostol (Misoprostol 25 Mcg (1/4 Of 100 Mcg) Tab) 25 mcg PO Q4H [facility] Last Admin: 02/12/21 08:46 Dose: 25 mcg Documented by: Nalbuphine HCl (Nalbuphine 10 Mg/1 Ml Vial) 10 mg IVPUSH Q1H PRN PRN Reason: Pain (severe 7-10) Ondansetron HCl (Ondansetron 4 Mg/2 Ml Sdv) 4 mg IVPUSH Q6H PRN PRN Reason: Nausea/Vomiting Sodium Chloride (Sodium Chloride 0.9% 10 Ml Syringe) 10 ml FLUSH ASDIRECTED PRN PRN Reason: Keep Vein Open Sodium Chloride (Sodium Chloride 0.9% 2.5 Ml Syringe) 2.5 ml FLUSH ASDIRECTED PRN PRN Reason: Keep Vein Open Sodium Chloride (Sodium Chloride 0.9% 10 Ml Sdv) 10 ml IV ASDIRECTED PRN PRN Reason: IV Use Sterile Water (Water For Irrigation,Sterile 1,000 Ml Container) 1,000 ml IRR ASDIRECTED PRN PRN Reason: delivery Terbutaline Sulfate (Terbutaline 1 Mg/Ml Sdv) 0.25 mg SUBCUT ASDIRECTED PRN PRN Reason: Tacysystole - Exam General: Reports: Alert, Oriented HEENT: Reports: Pupils Equal, Pupils Reactive, EOMI, Mucous Membr. Moist/Delta Neck: Reports: Supple Lungs: Reports: Clear to Auscultation, Normal Respiratory Effort Cardiovascular: Reports: Regular Rate, Regular Rhythm GI/Abdominal Exam: Normal Bowel Sounds, Soft, Non-Tender, No Organomegaly, No Distention, No Abnormal Bruit, No Mass, Pelvis Stable (Female) Exam: Normal External Exam, Normal Speculum Exam, Normal Bimanual Exam Rectal (Female) Exam: Normal Exam, Normal Rectal Tone Back Exam: Reports: Normal Inspection, Full Range of Motion Extremities: Normal Inspection, Normal Range of Motion, Non-Tender, No Pedal Edema, Normal Capillary Refill Skin: Reports: Warm, Dry, Intact Wound/Incisions: Reports: Healing Well Neurological: Reports: No New Focal Deficit Psy/Mental Status: Reports: Alert, Normal Affect, Normal Mood
== END 2021-02-14 14:40 | disposition home or self-care (01) | DRG 560 ==
LOC: MW.OBCHECK 03:09 → MW.OB 03:11 → MW.OBCHECK 07:45 → MW.OB 07:46 → OBSVTOIN 17:44 → MW.OB 02-13 00:10
PROVIDERS: ADMIT Obstetrics & Gynecology; ATTEND Obstetrics & Gynecology
PROC: 10D07Z6 Extraction of Products of Conception, Vacuum, Via Natural or Artificial Opening (ICD-10-PCS; principal; 2021-02-12)
PROC: 3E0P7VZ Introduction of Hormone into Female Reproductive, Via Natural or Artificial Opening (ICD-10-PCS; 2021-02-12)
PROC: 3E033VJ Introduction of Other Hormone into Peripheral Vein, Percutaneous Approach (ICD-10-PCS; 2021-02-12)
PROC: 3E0R3BZ Introduction of Anesthetic Agent into Spinal Canal, Percutaneous Approach (ICD-10-PCS; 2021-02-12)
DX: O48.0 Post-term pregnancy (principal); Z37.0 Single live birth; O99.824 Streptococcus B carrier state complicating childbirth; O76 Abnormality in fetal heart rate and rhythm complicating labor and delivery; O77.0 Labor and delivery complicated by meconium in amniotic fluid; Z20.822 Contact with and (suspected) exposure to COVID-19; Z3A.41 41 weeks gestation of pregnancy
CPT/HCPCS: 01967; 36415; 51702; 59025; 59409; 85014; 85018; 85027; 86592; 86850; 86900; 86901; A9270-GY; J0290; J2590; J2795; J3490; J7120; U0002

== ENCOUNTER 2024-03-22 02:06 | Emergency (ER) | payer BC ==
[2024-03-22 02:28] LABS: APPEARANCE,URINE CLEAR; BILIRUBIN,URINE NEGATIVE (NEGATIVE); COLOR,URINE YELLOW; GLUCOSE,URINE NEGATIVE (NEGATIVE); KETONES,URINE NEGATIVE (NEGATIVE); LEUKOCYTE ESTERASE,URINE NEGATIVE (NEGATIVE); NITRITE,URINE NEGATIVE (NEGATIVE); OCCULT BLOOD,URINE TRACE-INTACT (NEGATIVE); PROTEIN,URINE NEGATIVE (NEGATIVE); UROBILINOGEN,URINE 0.2 EU/dL (<2.0)
[2024-03-22 02:32] LABS: BACTERIA,URINE FEW (NEGATIVE); EPITHELIAL CELLS,URINE FEW (NONE-FEW); RBC,URINE 0-2 (0-2/HPF); WBC,URINE NONE SEEN (0-5/HPF)
[2024-03-22 02:46] LABS: BASOPHILS ABSOLUTE AUTO 0.04 K/uL (0.00-0.20); BASOPHILS PERCENT AUTO 0.2 % (0.0-1.0); EOSINOPHILS ABSOLUTE AUTO 0.04 K/uL (0.00-0.45); EOSINOPHILS PERCENT AUTO 0.2 % (0.0-6.0); HEMATOCRIT 39.3 % (37.0-47.0); HEMOGLOBIN 13.3 g/dL (12.0-16.0); IMMATURE GRAN ABSOLUTE AUTO 0.08 K/uL (0.00-0.05); IMMATURE GRAN PERCENT AUTO 0.4 % (0.0-0.4); LYMPHOCYTES ABSOLUTE AUTO 2.07 K/uL (1.00-4.80); LYMPHOCYTES PERCENT AUTO 11.6 % (24.0-44.0); MEAN CORPUSCULAR HEMOGLOBIN 30.3 pg (28.0-32.0); MEAN CORPUSCULAR HGB CONC 33.8 g/dL (32.0-36.0); MEAN CORPUSCULAR VOLUME 89.5 fL (83.0-99.0); MEAN PLATELET VOLUME 9.2 fL (9.4-12.3); MONOCYTES ABSOLUTE AUTO 0.92 K/uL (0.00-0.80); MONOCYTES PERCENT AUTO 5.1 % (0.0-8.0); NEUTROPHILS ABSOLUTE AUTO 14.72 K/uL (1.80-7.70); NEUTROPHILS PERCENT AUTO 82.5 % (41.0-71.0); PLATELET COUNT,PLT 296 K/uL (150-400); RED BLOOD CELL COUNT 4.39 M/uL (4.10-5.30); WHITE BLOOD CELL COUNT,WBC 17.87 K/uL (3.9-11.3)
[2024-03-22 03:00] LABS: A/G RATIO 1.1 (0.9-1.6); BILIRUBIN TOTAL 0.7 mg/dL (0.2-1.0); CALCIUM 8.9 mg/dL (8.5-10.1); CARBON DIOXIDE,CO2 26.7 mmol/L (21.0-32.0); CREATININE 0.8 mg/dL (0.6-1.0); EST CRCL DRUG DOSING (CG) 77.31 mL/min; POTASSIUM,K 3.7 mmol/L (3.5-5.1); PROTEIN TOTAL,TP 7.5 g/dL (6.4-8.2)
[2024-03-22] MEDS: Amoxicillin/Clavulanate K 875-125 MG Tab PO STA (03:41)
== END 2024-03-22 03:55 | disposition home or self-care (01) ==
LOC: MW.ED 02:06
DX: K57.32 Diverticulitis of large intestine without perforation or abscess without bleeding (principal); Z75.8 Other problems related to medical facilities and other health care
CPT/HCPCS: 36415; 71250; 74176; 80053; 81001; 81025; 85025; 99284; A9270